=== PATIENT | female | born 1995 | race Caucasian/White ===

== ENCOUNTER → 2017-01-04 | Outpatient (CLI) | payer OTHER ==
[~2017-01-04] MED LIST: BACTROBAN OINT22 GM PO; DURICEF250 MG/5 M PO
== END | disposition home or self-care (01) ==
LOC: US 11:00
DX: R10.11 Right upper quadrant pain (principal)

== ENCOUNTER → 2017-03-14 | Day surgery (SDC) | payer OTHER ==
[~2017-03-14] VITALS: Ht 160 cm; Wt 63.5 kg
--- NOTE | ~2017-03-14 | O ---
[place], [place] OPERATIVE NOTE NAME: CADEN ROSARIO UNIT #: [id number] ROOM: DOCTOR: LENY CASTRO MD BIRTHDATE: [birth year] DOS: GASTRO-ENDOSCOPIC REPORT HISTORY OF PRESENT ILLNESS: This is a 21-year-old patient who has presented with chief complaint of dyspepsia. The patient has already been treated for H. pylori with triple antibiotics and omeprazole. ALLERGIES: To no known medication. FAMILY HISTORY: Noncontributory. PAST SURGICAL HISTORY: x 2. PROCEDURE: Today's procedure part of investigation is panendoscopy plus biopsies. PREMEDICATION: Versed and Diprivan. SCOPE: Olympus forward-viewing gastroscope Q10 video. REPORT: After putting the patient in the left lateral position and after application of lubricant to the scope, the scope was introduced. Thereafter, under direct visualization, I advanced through the length of the esophagus without difficulty. Gastric pouch was entered. Evidence of gastritis was seen. Antral biopsies multiple times obtained. Duodenal bulb, second and third part within normal limits. The patient extubated, tolerated procedure well. IMPRESSION: Gastritis, history of Helicobacter pylori, status post therapy, presently status post biopsy to rule out residual Helicobacter pylori. PLAN AND DISCUSSION: The patient has completed her medications at the present time on omeprazole 20 mg 1 daily and will follow up as outpatient on the biopsies and clinical reassessment. Thank you very much indeed for your kind referral. [place], [place] OPERATIVE NOTE NAME: CADEN ROSARIO UNIT #: [id number] ROOM: DOCTOR: LENY CASTRO MD BIRTHDATE: [birth year] LENY CASTRO MD CM:OPRECORD:OPERATIVE NOTE [id number] LENY CASTRO MD 03/14/17 1910 interface
[2017-03-14 14:00] VITALS: BP 111/50
[2017-03-14 15:24] VITALS: BP 107/62
[2017-03-14 15:40] VITALS: BP 110/58
[2017-03-14 15:55] VITALS: BP 107/62
== END | disposition home or self-care (01) ==
LOC: SDC 03-12 09:30
DX: K29.50 Unspecified chronic gastritis without bleeding (principal); I10 Essential (primary) hypertension; Z87.891 Personal history of nicotine dependence

== ENCOUNTER → 2018-06-05 | Outpatient (CLI) | payer OTHER | END | disposition home or self-care (01) | LOC: LAB 11:40 | DX: Z32.01 Encounter for pregnancy test, result positive (principal) ==

== ENCOUNTER 2019-07-25 12:50 | Emergency (ER) | payer OTHER ==
[~2019-07-25] VITALS: Ht 160 cm; Wt 63.5 kg
[2019-07-25] MEDS ORDERED: KENALOG 0.1%80 GM T (13:27)
[2019-07-25] MEDS ORDERED: TYLENOL325 M1 PO (13:27)
[2019-07-25] MEDS ORDERED: NAPROSYN500 MG PO (13:27)
[2019-07-25] MEDS ORDERED: AUGMENTIN 875875 MG PO (13:27)
== END 2019-07-25 13:49 | disposition home or self-care (01) ==
LOC: ED 12:50
DX: L03.114 Cellulitis of left upper limb (principal); L81.8 Other specified disorders of pigmentation; Z79.2 Long term (current) use of antibiotics

== ENCOUNTER 2019-08-10 21:14 | Emergency (ER) | payer OTHER ==
[~2019-08-10] VITALS: Ht 160 cm; Wt 63.5 kg
[~2019-08-10 21:14] MED LIST changes: +AUGMENTIN 875875 MG PO; +KENALOG 0.1%80 GM T; +NAPROSYN500 MG PO; +TYLENOL325 M1 PO
[2019-08-10 21:55] LABS: CLARITY CLEAR (CLEAR); COLOR YELLOW (YELLOW)
[2019-08-10 21:56] LABS: BILIRUBIN NEGATIVE (NEGATIVE); BLOOD NEGATIVE (NEGATIVE); GLUCOSE NEGATIVE (NEGATIVE); KETONE NEGATIVE (NEGATIVE); LEUKO ESTERASE 2+ (NEGATIVE); NITRITE NEGATIVE (NEGATIVE); UROBILINOGEN 0.2 E.U./dl (0.2-1.0)
[2019-08-10 21:57] LABS: EPITHELIAL CELLS 21-30
[2019-08-10] MEDS ORDERED: FLUCONAZOLE100 MG PO (22:32)
== END 2019-08-10 22:55 | disposition home or self-care (01) ==
LOC: ED 21:14
PROVIDERS: Nurse Practitioner Family
DX: B37.3 Candidiasis of vulva and vagina (principal); F17.200 Nicotine dependence, unspecified, uncomplicated

== ENCOUNTER 2020-02-29 14:37 | Emergency (ER) | payer OTHER ==
[~2020-02-29] VITALS: Ht 160 cm; Wt 59.0 kg
[~2020-02-29 14:37] MED LIST changes: +FLUCONAZOLE100 MG PO
== END 2020-02-29 17:39 | disposition home or self-care (01) ==
LOC: ED 14:37
DX: T74.21XA Adult sexual abuse, confirmed, initial encounter (principal); F17.200 Nicotine dependence, unspecified, uncomplicated; Y92.89 Other specified places as the place of occurrence of the external cause

== ENCOUNTER 2020-06-23 19:16 | Emergency (ER) | payer OTHER ==
[~2020-06-23] VITALS: Ht 167.6 cm; Wt 59.0 kg
== END 2020-06-23 20:15 | disposition home or self-care (01) ==
LOC: ED 19:16
DX: H10.9 Unspecified conjunctivitis (principal); F17.200 Nicotine dependence, unspecified, uncomplicated; Z79.899 Other long term (current) drug therapy

== ENCOUNTER 2020-09-27 11:18 | Emergency (ER) | payer OTHER ==
[~2020-09-27] VITALS: Wt 59.0 kg
[2020-09-27 12:01] LABS: BASO # 0.1 10*3/uL (0.0-0.1); BASO % 0.9 % (0.0-1.0); EOS # 0.1 10*3/uL (0.0-0.4); EOS % 1.9 % (1.0-4.0); LYMPH # 1.7 10*3/uL (1.3-4.4); LYMPH % 30.6 % (27.0-41.0); MEAN CELL VOLUME 77.6 fl (81.0-99.0); MEAN CORPUSCULAR HGB 24.3 pg (27.0-31.0); MEAN CORPUSCULAR HGB CONC 31.4 g/dl (33.0-37.0); MEAN PLATELET VOLUME 9.7 fl (9.6-12.3); MONO # 0.5 10*3/uL (0.1-1.0); MONO % 9.2 % (3.0-9.0); NEUT # 3.3 10*3/uL (2.3-7.9); NEUT % 57.2 % (47.0-73.0); PLATELET COUNT AUTOMATED 272 10*3/uL (130-400); RED BLOOD COUNT 4.77 10*6/uL (4.10-5.10); RED CELL DISTRI WIDTH 14.3 % (0-14.5); WHITE BLOOD COUNT 5.7 10*3/uL (4.8-10.8)
[2020-09-27 12:17] LABS: BILIRUBIN Negative (Negative); BLOOD Negative (Negative); CLARITY Clear (Clear); COLOR Yellow (Yellow); GLUCOSE Negative (Negative); KETONE Negative (Negative); LEUKO ESTERASE Trace (Negative); NITRITE Negative (Negative); UROBILINOGEN 0.2 E.U./dl (0.0-1.0)
[2020-09-27 12:27] LABS: EPITHELIAL CELLS 0-2; RBC 0-2 rbc/hpf (0-2)
[2020-09-27 12:29] LABS: ALBUMIN 3.4 gm/dl (3.1-4.5); ALKALINE PHOSPHATASE 65 U/L (45-117); BUN 7 mg/dl (7-24); CHLORIDE 108 mmol/L (98-107); CREATININE 0.66 mg/dL (0.55-1.02); LIPASE 75 U/L (73-393); POTASSIUM 4.1 mmol/L (3.5-5.1); SGOT/AST 10 IU/L (3-35); SGPT/ALT 14 U/L (12-78); SODIUM 140 mmol/L (136-145)
[2020-09-27] MEDS ORDERED: CEFUROXIME AXE500 MG PO (13:41)
== END 2020-09-27 13:58 | disposition home or self-care (01) ==
LOC: ED 11:18
PROVIDERS: Family Medicine
DX: N39.0 Urinary tract infection, site not specified (principal); Z79.899 Other long term (current) drug therapy

== ENCOUNTER 2021-03-04 16:19 | Emergency (ER) | payer OTHER ==
[~2021-03-04] VITALS: Wt 57.2 kg
[~2021-03-04 16:19] MED LIST changes: +CEFUROXIME AXE500 MG PO
[2021-03-04] MEDS ORDERED: IBUPROFEN600 MG PO (20:58)
== END 2021-03-04 20:57 | disposition home or self-care (01) ==
LOC: ED 16:19
DX: S20.222A Contusion of left back wall of thorax, initial encounter (principal); Z79.899 Other long term (current) drug therapy; Z79.2 Long term (current) use of antibiotics; W01.0XXA Fall on same level from slipping, tripping and stumbling without subsequent striking against object, initial encounter; Y93.89 Activity, other specified; Y92.89 Other specified places as the place of occurrence of the external cause; Y99.8 Other external cause status

== ENCOUNTER → 2022-04-02 | Outpatient (CLI) | payer OTHER ==
[~2022-04-02] MED LIST changes: +IBUPROFEN600 MG PO
== END | disposition home or self-care (01) ==
LOC: US 13:00
PROVIDERS: ATTEND Family Medicine
DX: R60.9 Edema, unspecified (principal)

== ENCOUNTER 2022-06-28 21:24 | Emergency (ER) | payer OTHER ==
[~2022-06-28] VITALS: Ht 160 cm; Wt 78.5 kg
[2022-06-28 21:54] LABS: BILIRUBIN Negative (Negative); BLOOD Negative (Negative); CLARITY Cloudy (Clear); COLOR Yellow (Yellow); GLUCOSE Negative (Negative); KETONE Negative (Negative); LEUKO ESTERASE Trace (Negative); NITRITE Negative (Negative); UROBILINOGEN 0.2 E.U./dl (0.0-1.0)
[2022-06-28 22:04] LABS: BACTERIA 2+; EPITHELIAL CELLS TNTC; WBC 0-2 wbc/hpf (0-5)
[2022-06-28] MEDS ORDERED: GYNE-LOTRIMIN-745 GM T (22:27)
== END 2022-06-28 22:31 | disposition home or self-care (01) ==
LOC: ED 21:24
PROVIDERS: Nurse Practitioner Family
DX: O98.813 Other maternal infectious and parasitic diseases complicating pregnancy, third trimester (principal); Z3A.28 28 weeks gestation of pregnancy